=== PATIENT | female | born 1940 | race Caucasian/White ===

== ENCOUNTER → 2024-09-29 | Outpatient (CLI) | payer MEDICARE, OTHER ==
[~2024-09-29] MED LIST: ISOVUE-370 76% 100ML VIAL As Ordered ONE
== END ==
LOC: M RAD 09:25
PROVIDERS: ATTEND Nurse Practitioner Adult Health
DX: K85.90 Acute pancreatitis without necrosis or infection, unspecified (principal); R10.84 Generalized abdominal pain
CPT/HCPCS: 71260; 74177; 83690; Q9967

== ENCOUNTER → 2024-10-14 | Outpatient (REF) | payer MEDICARE, OTHER | LOC: M LAB REF 12:14 | PROVIDERS: ATTEND Nurse Practitioner Adult Health | DX: K85.90 Acute pancreatitis without necrosis or infection, unspecified (principal) ==

== ENCOUNTER → 2024-10-29 | Outpatient (CLI) | payer MEDICARE, OTHER | LOC: M RAD 12:26 | PROVIDERS: ATTEND Nurse Practitioner Adult Health | DX: J98.4 Other disorders of lung (principal); J47.9 Bronchiectasis, uncomplicated | CPT/HCPCS: 71260; Q9967 ==

== ENCOUNTER → 2025-03-22 | Outpatient (REF) | payer MEDICARE, OTHER ==
[2025-03-22 14:37] LABS: INR 0.91
[2025-03-22 15:08] LABS: IRON (FE) 91.0 UG/DL (50-170); PERCENT SATURATION 25.1 % (13.2-45.0)
== END ==
LOC: M LAB REF 14:20
PROVIDERS: ATTEND Nurse Practitioner Adult Health
DX: D68.9 Coagulation defect, unspecified (principal)

== ENCOUNTER → 2025-04-08 | Outpatient (CLI) | payer MEDICARE, OTHER | LOC: M CARPUL 10:30 | PROVIDERS: ATTEND Internal Medicine | DX: R94.31 Abnormal electrocardiogram [ECG] [EKG] (principal) ==